=== PATIENT | male | born 1995 | race Caucasian/White ===

== ENCOUNTER 2018-10-13 17:12 | Emergency (ER) | payer OTHER ==
[~2018-10-13] VITALS: Ht 172.7 cm; Wt 94.8 kg
[2018-10-13 17:26] VITALS: BP 141/72
== END 2018-10-13 18:18 | disposition home or self-care (01) ==
LOC: ED 17:12
DX: S23.3XXA Sprain of ligaments of thoracic spine, initial encounter (principal); V49.49XA Driver injured in collision with other motor vehicles in traffic accident, initial encounter; Y93.I9 Activity, other involving external motion; Y92.413 State road as the place of occurrence of the external cause; Y99.8 Other external cause status